=== PATIENT | female | born 1950 | race Caucasian/White ===

== ENCOUNTER 2017-08-20 11:04 | Day surgery (SDC) | payer MEDICARE ==
[~2017-08-20 11:04] MED LIST: DIOV80TA4; LEVO.1 PO; METO25 PO
[2017-08-20] MEDS ORDERED: MAGN250T11 PO (11:49)
[2017-08-20] MEDS ORDERED: VALS1TAB65 PO (11:49)
[2017-08-20] MEDS ORDERED: METO-426 PO (11:49)
[2017-08-20] MEDS ORDERED: XARE20TA PO (11:49)
[2017-08-20] MEDS ORDERED: AMIO200T PO (11:49)
[2017-08-20] MEDS ORDERED: LIOT5TAB3 (11:49)
--- NOTE | 2017-08-20 14:31 | CF ---
cc: Josefina Jara MD DATE: 08/20/2017 INDICATIONS FOR PROCEDURE: 1. Atrial fibrillation, cardioversion. 2. Rule out left atrial appendage thrombus. 3. Tricuspid regurgitation. CONSENT: Fully informed consent was obtained prior to the procedure. The risks of , bleeding, perforation, aspiration, stroke, foreseen and unforeseen complications were reviewed. The patient appeared to fully understand the risks. PROCEDURAL STATEMENT: The patient was prepped and draped in the usual manner. A full MARICEL was performed. Following the MARICEL, we proceeded with cardioversion. FINDINGS: The left atrial appendage is free of thrombus. The mitral valve was intact. The tricuspid valve showed moderate tricuspid regurgitation. LV function was normal. CONCLUSION: 1. Mild to moderate tricuspid regurgitation. 2. Normal left ventricular function. 3. No left atrial appendage thrombus. 4. Aorta visualized at 40 cm with some mild plaquing. PLAN: Proceed with cardioversion. MD CRISTY Winston/BLAYNE , 02:09 PM , 02:31 PM
--- NOTE | 2017-08-20 14:34 | MR ---
cc: Josefina Jara MD, George MD DATE: 08/20/2017 PROCEDURE PERFORMED: Cardioversion. INDICATION: Atrial fibrillation. PROCEDURE: The patient underwent full transesophageal echo. Following this, the patient had a 200 joule synchronized shock which converted her to sinus rhythm. CONCLUSION: Successful cardioversion from atrial fibrillation to sinus rhythm. PLAN: 1. Discharge the patient later today. 2. Follow up in the office in 1-2 weeks' time. 3. Follow up with Dr. Hou in due course. Josefina Jara MD HAJ/BLAYNE , 02:10 PM , 02:33 PM
--- NOTE | 2017-08-20 23:36 | EKG ---
Date Performed: 08/20/2017 Time Performed: 14:58:58 PTAGE: 67 years EKG: Sinus rhythm with PAC(s). Anterior T wave changes are nonspecific Low QRS voltages in precordial leads Borderline ECG PREVIOUS TRACING : 08/20/2017 11.46 Compared to previous tracing, now in sinus rhythm DOCTOR: John Rios Interpretating Date/Time 08/20/2017 23:34:44
--- NOTE | 2017-08-20 23:44 | EKG ---
Date Performed: 08/20/2017 Time Performed: 11:46:50 PTAGE: 67 years EKG: Atrial fibrillation. Inferior and anterior T wave changes are nonspecific Abnormal ECG PREVIOUS TRACING : 11/19/2006 07.38 Compared to previous tracing, previously Sinus rhythm DOCTOR: John Rios Interpretating Date/Time 08/20/2017 23:44:04
== END 2017-08-20 15:17 | disposition home or self-care (01) ==
LOC: HDOC 11:04 → HDIC 11:05 → HDOC 15:17
PROVIDERS: ATTEND Internal Medicine Cardiovascular Disease
DX: I48.91 Unspecified atrial fibrillation (principal); I47.1 Supraventricular tachycardia; I10 Essential (primary) hypertension; I35.1 Nonrheumatic aortic (valve) insufficiency; I34.0 Nonrheumatic mitral (valve) insufficiency; E78.5 Hyperlipidemia, unspecified; Z79.01 Long term (current) use of anticoagulants
CPT/HCPCS: 92960; 93005; 93312; 93320; 93325